=== PATIENT | female | born 1945 | race Caucasian/White ===

== ENCOUNTER 2020-11-16 22:18 | Emergency (ER) | payer OTHER, MEDICARE, SELFPAY ==
[2020-11-16 22:24] VITALS: PULSE 67; O2SAT 95
[2020-11-16 22:25] VITALS: BP 205/79; PULSE 60; PULSE 62; RESP 15; TEMP 36.8; O2SAT 97; O2SAT 98; BMI 30.9
[2020-11-16 22:30] VITALS: PULSE 60; RESP 21; O2SAT 98
[2020-11-16] MEDS: ONDANSETRON 4 MG/2 ML INJ IV (22:43)
[2020-11-16 23:00] VITALS: PULSE 59; RESP 27; O2SAT 96
--- NOTE | 2020-11-16 23:10 | ED_ITS ---
HPI - Abdominal Pain General Chief Complaint: Abdominal Pain Stated Complaint: upper abdominal pain Time Seen by Provider: 11/16/20 22:52 Source: patient Mode of arrival: Ambulatory Limitations: no limitations History of Present Illness HPI narrative: The patient presents with epigastric abdominal pain. She has COLTEN D. She takes Prilosec 20 mg daily. She has been having discomfort in the epigastric region for about 1 month. Symptoms are also better with eating. She has no discomfort radiating to her back. She drinks small amounts of alcohol, she is a he is nonsmoker. She has intermittent constipation than diarrhea. She has IBS. This evening the epigastric pain was increasing. She vomited 1 time since arrival in the ER, she is feeling better. She has no URI symptoms, no headache, no cough or fever. She has no urinary complaints. Related Data Previous Rx's Medication Instructions Recorded pantoprazole [Protonix] 40 mg PO DAILY #30 ea 11/17/20 Allergies Allergy/AdvReac Type Severity Reaction Status Date / Time Iodinated Contrast Media Allergy Verified 11/16/20 22:51 Sulfa (Sulfonamide Allergy Verified 11/16/20 22:51 Antibiotics) Review of Systems Constitutional Constitutional: Denies chills, Denies fever(s), Denies headache(s) and Denies weakness Eyes Eyes: Denies change in vision ENT Ears, Nose, Mouth, and Throat: Denies dizziness, Denies headache(s) and Denies sore throat Cardiovascular Cardiovascular: Denies chest pain, Denies rapid heart rate and Denies dyspnea Respiratory Respiratory: Denies cough, Denies dyspnea and Denies wheezing Gastrointestinal Gastrointestinal: Denies abdominal pain, Denies change in bowel habits and Denies nausea Musculoskeletal Musculoskeletal: Denies arthralgias, Denies back pain and Denies myalgias Integumentary/Breasts Skin/Breast: Denies pruritus, Denies erythema, Denies rash and Denies wounds Neurologic Neurologic: Denies confusion, Denies dizziness, Denies headache(s) and Denies weakness Psychiatric Psychiatric: Denies confusion and Denies depression Allergic/Immunologic Allergic/Immunologic: Denies wheezing Patient History Medical History (Updated 11/17/20 @ 01:42 by Yaya Oglesby MD) GERD (gastroesophageal reflux disease) Social History Smoking Status: Former smoker Smoking Status: Former smoker alcohol intake frequency: 0-2 drinks per day Substance Use Type: does not use Exam Initial Vital Signs Initial Vital Signs: Vital Signs Pulse Rate 67 11/16/20 22:24 Pulse Oximetry 95 11/16/20 22:24 Const General: cooperative and well developed Nutritional Appearance: well nourished [facility] Mouth: oral mucosae normal Throat: posterior oropharynx normal Eyes Conjunctivae: conjunctivae normal Neck Neck: full ROM and supple Chest Chest: normal inspection of the chest Resp Effort & Inspection: normal respiratory effort, able to speak in complete sentences, no respiratory distress and no use of accessory muscles Auscultation: clear to auscultation bilaterally, no rales, no rhonchi and no wheezes Cardio Rhythm: regular rhythm and abnormal rhythm Heart Sounds: S1 normal and S2 normal GI Other: Epigastric tenderness. No distension. No guarding or rebound. Back/Spine/Pelvis Back: No CVA tenderness Skin General: no rashes or lesions noted, No jaundice and No petechiae Neuro General: patient alert, patient oriented x3, gait normal and no focal motor deficits Speech: speech normal Extrem General: full ROM, no clubbing, cyanosis or edema, no pedal edema and no calf tenderness Course Course Course Narrative: Her LFTs and lipase are normal. She initially improved with Protonix, then the pain seemed to return a bit. Toradol was given, pain has been managed well now. She was discharged on Protonix instead of Prilosec. Orders Ordered: Discontinued Medications Ketorolac Tromethamine (Ketorolac 30 Mg/Ml Vial) 15 mg IV NOW ONE Stop: 11/17/20 01:00 Last Admin: 11/17/20 01:08 Dose: 15 mg Documented by: PORSCHE Ondansetron HCl (Ondansetron 4 Mg/2 Ml Inj) 4 mg IV NOW ONE Stop: 11/16/20 22:41 Last Admin: 11/16/20 22:43 Dose: 4 mg Documented by: SALONI Ondansetron HCl (Ondansetron 4 Mg/2 Ml Inj) 4 mg IV NOW ONE Stop: 11/16/20 23:10 Last Admin: 11/16/20 23:50 Dose: Not Given Documented by: LAYNE Pantoprazole Sodium (Pantoprazole 40 Mg Vial) 40 mg IV NOW ONE Stop: 11/16/20 23:10 Last Admin: 11/16/20 23:18 Dose: 40 mg Documented by: LAYNE Vital Signs Vital signs: Vital Signs - 8 hr 11/16/20 22:25 Temperature 98.3 F Pulse Rate 60 Respiratory Rate 15 Blood Pressure 205/79 H Pulse Oximetry 98 MDM - Abdominal Pain Lab Data Result diagrams: 11/16/20 22:35 11/16/20 22:35 Labs: Lab Results 11/16/20 11/16/20 11/16/20 Range/Units 22:35 22:35 22:35 WBC 6.8 (4.5-11.0) X10^3/uL RBC 4.27 (4.0-5.2) X10^6/uL Hgb 13.4 (12.0-16.0) g/dL Hct 40.1 (36-46) % MCV 93.9 (80-100) fL MCH 31.3 (26-34) PG MCHC 33.3 (30-36) % RDW 13.1 (11.6-14.8) % Plt Count 233 (150-400) X10^3/uL Neut % (Auto) 62.2 (50-75) % Lymph % (Auto) 25.1 (25-40) % [place] % (Auto) 10.1 (3-14) % Eos % (Auto) 2.0 (2-4) % Baso % (Auto) 0.6 (0-2) % Neut # (Auto) 4200 (9254-8174) /uL Lymph # (Auto) 1700 (4998-7223) /uL [place] # (Auto) 700 (0-900) /uL Eos # (Auto) 100 (0-450) /uL Baso # (Auto) 0 (0-100) /uL PT 10.6 (10.1-12.7) SECONDS INR 0.9 (0.9-1.3) APTT 32 (26.4-36.2) SECONDS Sodium 137 (137-145) mmol/L Potassium 3.5 (3.4-5.1) mmol/L Chloride 100 (98-107) mmol/L Carbon Dioxide 29 (22-32) mmol/L BUN 19 H (7-17) mg/dL Creatinine 0.51 L (0.52-1.04) mg/dL Estimated GFR > 60.0 (>60) mL/min BUN/Creatinine Ratio 37.3 H (6-22) Glucose 119 H (80-110) mg/dL Calcium 9.4 (8.4-10.2) mg/dL Total Bilirubin 0.3 (0.2-1.3) mg/dL AST 28 (14-36) IU/L ALT 20 (<35) IU/L Alkaline Phosphatase 114 (38-126) U/L Total Creatine Kinase (30-135) U/L CK-MB (CK-2) CK-MB (CK-2) Rel Index Troponin I (0.01-0.034) ng/mL Total Protein 6.9 (6.3-8.2) g/dL Albumin 4.0 (3.5-5.0) g/dL Globulin 2.9 (1.7-4.1) g/dL Albumin/Globulin Ratio 1.4 (1.0-2.8) Lipase 54 (23-300) U/L 11/16/20 Range/Units 22:35 WBC (4.5-11.0) X10^3/uL RBC (4.0-5.2) X10^6/uL Hgb (12.0-16.0) g/dL Hct (36-46) % MCV (80-100) fL MCH (26-34) PG MCHC (30-36) % RDW (11.6-14.8) % Plt Count (150-400) X10^3/uL Neut % (Auto) (50-75) % Lymph % (Auto) (25-40) % [place] % (Auto) (3-14) % Eos % (Auto) (2-4) % Baso % (Auto) (0-2) % Neut # (Auto) (6291-8899) /uL Lymph # (Auto) (5154-4468) /uL [place] # (Auto) (0-900) /uL Eos # (Auto) (0-450) /uL Baso # (Auto) (0-100) /uL PT (10.1-12.7) SECONDS INR (0.9-1.3) APTT (26.4-36.2) SECONDS Sodium (137-145) mmol/L Potassium (3.4-5.1) mmol/L Chloride (98-107) mmol/L Carbon Dioxide (22-32) mmol/L BUN (7-17) mg/dL Creatinine (0.52-1.04) mg/dL Estimated GFR (>60) mL/min BUN/Creatinine Ratio (6-22) Glucose (80-110) mg/dL Calcium (8.4-10.2) mg/dL Total Bilirubin (0.2-1.3) mg/dL AST (14-36) IU/L ALT (<35) IU/L Alkaline Phosphatase (38-126) U/L Total Creatine Kinase 55 (30-135) U/L CK-MB (CK-2) TNP CK-MB (CK-2) Rel Index TNP Troponin I < 0.012 (0.01-0.034) ng/mL Total Protein (6.3-8.2) g/dL Albumin (3.5-5.0) g/dL Globulin (1.7-4.1) g/dL Albumin/Globulin Ratio (1.0-2.8) Lipase (23-300) U/L Point of care testing: Urine Dip Bedside Urine Glucose Negative Bedside Urine Bilirubin - Negative Bedside Urine Ketone - Negative Urine Specific [place] 1.025 Bedside Urine Occult Blood - Negative Bedside Urine pH 6.0 Bedside Urine Protein - Negative Bedside Urine Urobilinogen - Negative Bedside Urine Nitrite - Negative Bedside Urine Leukocytes - Negative Esterase ECG Data Attestation: I personally reviewed and interpreted this ECG as follows: (Normal sinus rhythm rate 60 beats per minute. Normal intervals. No ectopy. No acute ST T wave changes.) Discharge Plan Departure Patient Disposition: Home Clinical Impression: Abdominal pain, acute, epigastric GERD (gastroesophageal reflux disease) Qualifiers: Esophagitis presence: esophagitis presence not specified Qualified Code(s): K21.9 - Gastro-esophageal reflux disease without esophagitis Instructions: DI for Gastroesophageal Reflux Disease (GERD) Activity Restrictions/Additional Instructions: I am going to change of members alter Protonix. Take 1 Protonix daily. You should be on a bland diet, limit herself to small meals. Follow-up with your doctor within the coming week for recheck. Return here if obviously worse. Prescriptions: New pantoprazole [Protonix] [address] for susp in packet 40 mg PO DAILY Qty: 30 RF: 0
[2020-11-16 23:11] LABS: Add Manual Diff / Slide Review NO; Basophils Absolute Auto 0 /uL (0-100); Basophils Percent Auto 0.6 % (0-2); Eosinophils Absolute Auto 100 /uL (0-450); Hematocrit 40.1 % (36-46); Hemoglobin 13.4 g/dL (12.0-16.0); Lymphocytes Absolute Auto 1700 /uL (1100-4500); Lymphocytes Percent Auto 25.1 % (25-40); Mean Corpuscular HGB Conc 33.3 % (30-36); Mean Corpuscular Hemoglobin 31.3 PG (26-34); Mean Corpuscular Volume 93.9 fL (80-100); Monocytes Absolute Auto 700 /uL (0-900); Monocytes Percent Auto 10.1 % (3-14); Neutrophils Absolute Auto 4200 /uL (1500-7000); Neutrophils Percent Auto 62.2 % (50-75); Platelet Count 233 X10^3/uL (150-400); Red Blood Cell Count 4.27 X10^6/uL (4.0-5.2); Red Cell Distribution Width 13.1 % (11.6-14.8); White Blood Cell Count 6.8 X10^3/uL (4.5-11.0)
[2020-11-16] MEDS: PANTOPRAZOLE 40 MG VIAL IV (23:18)
[2020-11-16 23:19] LABS: INR 0.9 (0.9-1.3); Prothrombin Time 10.6 SECONDS (10.1-12.7)
[2020-11-16 23:21] LABS: Creatine Kinase 55 U/L (30-135)
[2020-11-16 23:22] LABS: PTT Partial Thromboplastin Tim 32 SECONDS (26.4-36.2)
[2020-11-16 23:23] LABS: Alanine Aminotransferase 20 IU/L (<35); Albumin Globulin Ratio 1.4 (1.0-2.8); Alkaline Phosphatase 114 U/L (38-126); Aspartate Aminotransferase 28 IU/L (14-36); BUN Creatinine Ratio 37.3 (6-22); Bilirubin Total 0.3 mg/dL (0.2-1.3); Blood Urea Nitrogen 19 mg/dL (7-17); Calcium 9.4 mg/dL (8.4-10.2); Carbon Dioxide 29 mmol/L (22-32); Chloride 100 mmol/L (98-107); Estimated Glomerular Filt Rate > 60.0 mL/min (>60); Globulin 2.9 g/dL (1.7-4.1); Glucose 119 mg/dL (80-110); HEMOLYSIS < 15 (0-50); Lipase 54 U/L (23-300); Potassium 3.5 mmol/L (3.4-5.1); Sodium 137 mmol/L (137-145); Total Protein 6.9 g/dL (6.3-8.2)
[2020-11-16 23:30] VITALS: PULSE 61; RESP 17; O2SAT 94
[2020-11-16 23:34] LABS: Troponin I < 0.012 ng/mL (0.01-0.034)
[2020-11-17] VITALS: PULSE 63; RESP 16; O2SAT 92
[2020-11-17 00:30] VITALS: PULSE 65; RESP 24; O2SAT 90
[2020-11-17 01:00] VITALS: PULSE 62; RESP 35; O2SAT 94
[2020-11-17] MEDS: KETOROLAC 30 MG/ML VIAL 15 MG IV (01:08)
[2020-11-17 01:15] VITALS: BP 187/72; PULSE 63; RESP 16; O2SAT 95
[2020-11-17 01:31] VITALS: BP 134/64
== END 2020-11-17 01:53 | disposition home or self-care (01) ==
PROVIDERS: Emergency Provider Emergency Medicine
DX: R10.13 Epigastric pain (principal); K21.9 Gastro-esophageal reflux disease without esophagitis
CPT/HCPCS: 36415; 80053; 81003; 82550; 83690; 84484; 85025; 85610; 85730; 93005; 93010; 96374; 96375; 99284; C9113; J1885; J2405

== ENCOUNTER 2021-08-30 12:11 | Emergency (ER) | payer OTHER, MEDICARE, SELFPAY ==
[2021-08-30] VITALS (20 sets, daily range): BP systolic 168–213; BP diastolic 70–85; PULSE 73–87; RESP 13–28; TEMP 36.7–36.9; O2SAT 77–97; BMI 30.9
--- NOTE | 2021-08-30 12:40 | DI.RAD.S_ITS ---
PROCEDURE: XR CHEST 1V INDICATIONS: chest pain TECHNIQUE: One view of the chest was acquired. COMPARISON: None. FINDINGS: Surgical changes and devices: None. Lungs and pleura: Lungs are clear. No pleural effusions or pneumothorax. Mediastinum: The cardiac contours are within normal limits. The aorta demonstrates calcification and tortuosity. Bones and chest wall: No suspicious bony lesions. Age-appropriate bony degenerative changes are seen. Overlying soft tissues appear unremarkable. IMPRESSION: Unremarkable portable chest for age. Dictated by: Jeremias Henderson M.D. on 08/30/2021 at 12:08 Approved by: Jeremias Henderson M.D. on 08/30/2021 at 12:09
[2021-08-30 12:58] LABS: Add Manual Diff / Slide Review NO; Basophils Absolute Auto 0 /uL (0-100); Basophils Percent Auto 0.4 % (0-2); Eosinophils Absolute Auto 100 /uL (0-450); Eosinophils Percent Auto 0.7 % (2-4); Hematocrit 41.9 % (36-46); Hemoglobin 14.3 g/dL (12.0-16.0); Lymphocytes Absolute Auto 800 /uL (1100-4500); Lymphocytes Percent Auto 7.3 % (25-40); Mean Corpuscular HGB Conc 34.2 % (30-36); Mean Corpuscular Hemoglobin 31.5 PG (26-34); Mean Corpuscular Volume 92.2 fL (80-100); Monocytes Absolute Auto 1100 /uL (0-900); Monocytes Percent Auto 9.7 % (3-14); Neutrophils Absolute Auto 9300 /uL (1500-7000); Neutrophils Percent Auto 81.9 % (50-75); Platelet Count 262 X10^3/uL (150-400); Red Blood Cell Count 4.54 X10^6/uL (4.0-5.2); Red Cell Distribution Width 13.4 % (11.6-14.8); White Blood Cell Count 11.3 X10^3/uL (4.5-11.0)
[2021-08-30 13:01] LABS: INR 1.1 (0.9-1.3); Prothrombin Time 12.4 SECONDS (10.1-12.7)
[2021-08-30 13:03] LABS: PTT Partial Thromboplastin Tim 30 SECONDS (26.4-36.2)
[2021-08-30 13:07] LABS: Alanine Aminotransferase 25 IU/L (<35); Albumin 4.5 g/dL (3.5-5.0); Albumin Globulin Ratio 1.3 (1.0-2.8); Alkaline Phosphatase 107 U/L (38-126); Aspartate Aminotransferase 33 IU/L (14-36); BUN Creatinine Ratio 33.3 (6-22); Blood Urea Nitrogen 19 mg/dL (7-17); Carbon Dioxide 28 mmol/L (22-32); Chloride 100 mmol/L (98-107); Creatine Kinase 146 U/L (30-135); Estimated Glomerular Filt Rate > 60.0 mL/min (>60); Globulin 3.4 g/dL (1.7-4.1); Glucose 129 mg/dL (80-110); HEMOLYSIS < 15 (0-50); Lipase 38 U/L (23-300); Magnesium 1.9 mg/dL (1.6-2.3); Potassium 3.8 mmol/L (3.4-5.1); Sodium 136 mmol/L (137-145); Total Protein 7.9 g/dL (6.3-8.2)
[2021-08-30 13:15] LABS: COVID19 -Nasal RAPID Negative (Negative)
[2021-08-30 13:17] LABS: Troponin I < 0.012 ng/mL (0.01-0.034)
--- NOTE | 2021-08-30 14:22 | ED_ITS ---
HPI - Abdominal Pain General Chief Complaint: Abdominal Pain Stated Complaint: Acid Reflux, Pain/Vomitting Time Seen by Provider: 08/30/21 12:56 Source: patient Mode of arrival: Ambulatory Limitations: no limitations History of Present Illness HPI narrative: This is a pleasant 75-year-old female comes in with complaint of epigastric and right upper quadrant pain that started Wednesday the in the evening. Patient had had sweet potato fries for lunch states she has a history of GERD and woke up with epigastric pain, she had vomiting and dry heaving into the and . She had a tele visit with her physician they suspected reflux and started her on sucralfate, Pepcid and Protonix with instant relief. Patient states last night she ate a little bit more, she woke up at 4:00 a.m. took a Tylenol at 7:00 a.m. took the medications without any improvement. She did skip her a.m. metoprolol dose. Patient denies fever but has felt chilled. She has had right upper quadrant epigastric discomfort, bloating and radiation towards her back. She has increased pain at that site with deep inhalation but no anterior chest pain. She has had diarrhea, no black or bloody stools she states this is been daily. No dysuria urgency or frequency. She is on metoprolol extended release 25 mg daily, amlodipine 2.5 mg daily, Ambien, dicyclomine, ezetimibe, pantoprazole, famotidine and sucralfate. She states she has had a prior hip replacement x2, hysterectomy and very remote breast biopsy in the 70s. She den ies other abdominal or cardiac surgeries or history she is still her should to gold and has in at reaction to shrimp. She quit smoking tobacco 35 years ago. She has 1 glass of wine daily, no illicit. Dr. Panchal is her primary care. Related Data Home Medications Medication Instructions Recorded Confirmed amlodipine 2.5 mg tablet 2.5 mg PO QPM 08/30/21 08/30/21 dicyclomine 20 mg tablet 20 mg PO PRN PRN 08/30/21 08/30/21 ezetimibe 10 mg tablet 10 mg PO QPM 08/30/21 08/30/21 famotidine 20 mg tablet 20 mg PO BID 08/30/21 08/30/21 metoprolol succinate 25 mg 25 mg PO DAILY 08/30/21 08/30/21 tablet,extended release 24 hr sertraline 50 mg tablet 50 mg PO DAILY 08/30/21 08/30/21 sucralfate 100 mg/mL oral 1 g PO BID 08/30/21 08/30/21 suspension (Carafate) zolpidem 5 mg tablet 5 mg PO BEDTIME PRN 08/30/21 08/30/21 Previous Rx's Medication Instructions Recorded pantoprazole 40 mg granules 40 mg PO DAILY #30 ea 11/17/20 delayed-release for susp in packet (Protonix) hydrocodone 5 mg-acetaminophen 325 1 tab PO Q6H PRN #10 tab 08/30/21 mg tablet ondansetron 4 mg disintegrating 4 mg PO Q6H PRN #10 tab 08/30/21 tablet Allergies Allergy/AdvReac Type Severity Reaction Status Date / Time Iodinated Contrast Media Allergy Verified 11/16/20 22:51 Sulfa (Sulfonamide Allergy Verified 11/16/20 22:51 Antibiotics) Review of Systems Review of Systems ROS Unobtainable: All systems reviewed & are unremarkable except as noted in HPI and below Patient History Medical History GERD (gastroesophageal reflux disease) Social History Smoking Status: Former smoker Smoking Status: Former smoker alcohol intake frequency: 0-2 drinks per day Substance Use Type: does not use Exam Narrative Exam Narrative: GENERAL: Alert and oriented x three, obese female in mild distress. HEENT: Head normocephalic, atraumatic, EOMI, pupils reactive, face symmetric, moist mucous membranes NECK: Supple, full range of motion CARDIOVASCULAR: Regular rate and rhythm without murmurs, rubs or gallops. RESPIRATORY: Breath sounds equal bilaterally, no wheezes rales or rhonchi. ABDOMEN: Soft. Patient has generalized tenderness but has positive right upper quadrant and epigastric tenderness in the mild. Bowel sounds all 4 quadrants. No guarding or rebound, rigidity, no mass : No CVA tenderness EXTREMITIES: Normal range of motion, no clubbing or edema. Neurovascularly intact NEUROLOGICAL: Cranial nerves II through XII grossly intact. Moving all extremi ties SKIN: Warm, dry, no petechiae, no rashes or lesions. Initial Vital Signs Initial Vital Signs: Vital Signs Temperature 98.4 F 08/30/21 12:32 Pulse Rate 77 08/30/21 12:32 Respiratory Rate 16 08/30/21 12:32 Blood Pressure 213/83 H 08/30/21 12:32 Pulse Oximetry 97 08/30/21 12:32 Course Orders Ordered: Discontinued Medications Hydrocodone Bitart/Acetaminophen (Hydrocodone/Acet 5/325 Prepack) 1 bottle MISC SEEINSTR ONE Stop: 08/30/21 18:33 Last Admin: 08/30/21 18:45 Dose: 1 bottle Documented by: SALONI Albuterol (Albuterol 2.5 Mg/3 Ml Neb (Adult)) 2.5 mg INH NOW ONE Stop: 08/30/21 15:06 Last Admin: 08/30/21 15:10 Dose: 2.5 mg Documented by: ABUNDIO Diphenhydramine HCl (Diphenhydramine 50 Mg/Ml Vial) 50 mg IV NOW ONE Stop: 08/30/21 16:04 Last Admin: 08/30/21 16:07 Dose: 50 mg Documented by: AVIVA Sodium Chloride (Normal Saline 0.9%) 1,000 mls @ 1,000 mls/hr IV BOLUS ONE Stop: 08/30/21 15:21 Last Infusion: 08/30/21 16:12 Dose: 0 mls/hr Documented by: Admin: 08/30/21 14:35 Dose: 1,000 mls/hr Documented by: AVIVA Ketorolac Tromethamine (Ketorolac 30 Mg/Ml Vial) 15 mg IV NOW ONE Stop: 08/30/21 14:23 Last Admin: 08/30/21 14:29 Dose: 15 mg Documented by: AVIVA Methylprednisolone (Methylprednisolone 125 Mg/2 Ml Vial) 125 mg IV NOW ONE Stop: 08/30/21 16:04 Last Admin: 08/30/21 16:07 Dose: 125 mg Documented by: AVIVA Metoprolol Succinate (Metoprolol Er 25 Mg Tablet) 25 mg PO NOW ONE Stop: 08/30/21 15:03 Last Admin: 08/30/21 15:14 Dose: 25 mg Documented by: AVIVA Ondansetron HCl (Ondansetron 4 Mg/2 Ml Inj) 4 mg IV NOW ONE Stop: 08/30/21 14:24 Last Admin: 08/30/21 14:30 Dose: 4 mg Documented by: AVIVA Ondansetron HCl (Ondansetron 4 Mg Odt Prepack) 1 bottle [facility] [place] Stop: 08/30/21 18:33 Last Admin: 08/30/21 18:44 Dose: 1 bottle Documented by: SALONI Reevaluation(s) Reevaluation #1: Patient's pain is improved. Found have gallstones as well as a epigastric abdominal wall hernia that is fat containing. Most likely cause for pain is likely the hernia in the gallstones. She has bilateral hydro which patient states she is aware of and had scans for multiple years in a row and was eventually cleared and has been there chronically. Patient is aware of findings on her imaging. She feels comfortable returning home oxygen did drop after she received IV Benadryl so continuing to monitor if we can wean off O2 plan to DC home. Suspect patient has little bit of sleep apnea. Patient is comfortable with this plan and we discussed recommendations from general surgery. Time: 17:25 Consultations Consultation #1: Dr. Varela, general surgery. Patient is gallstones but no clear thickening but does have enlargement of her gallbladder. She also has a fat containing epigastric region anterior abdominal wall hernia. These both could be causing her pain today. Her labs are reassuring. Her pain was controlled with medication here. Dr. Varela happy to follow with her in the office for repair and follow-up for her gallstones. Vital Signs Vital signs: Vital Signs - 8 hr 08/30/21 12:32 08/30/21 13:51 08/30/21 14:00 Temperature 98.4 F Pulse Rate 77 78 74 Respiratory Rate 16 16 Blood Pressure 213/83 H 204/83 H 194/80 H Pulse Oximetry 97 95 94 08/30/21 14:20 08/30/21 14:30 08/30/21 15:00 Temperature Pulse Rate 75 73 79 Respiratory Rate 24 13 28 H Blood Pressure 198/85 H 195/80 H Pulse Oximetry 93 96 94 08/30/21 15:01 08/30/21 15:14 08/30/21 15:15 Temperature Pulse Rate 79 74 78 Respiratory Rate 26 H 20 Blood Pressure 208/81 H 208/81 H Pulse Oximetry 94 93 08/30/21 15:30 08/30/21 15:31 08/30/21 16:00 Temperature Pulse Rate 80 83 83 Respiratory Rate 24 22 16 Blood Pressure 181/74 H Pulse Oximetry 94 94 95 08/30/21 16:12 08/30/21 16:16 08/30/21 16:37 Temperature Pulse Rate 85 86 Respiratory Rate 18 Blood Pressure 199/83 H 199/83 H Pulse Oximetry 96 77 L 08/30/21 16:39 08/30/21 17:00 08/30/21 17:30 Temperature Pulse Rate 87 79 78 Respiratory Rate 21 16 24 Blood Pressure 169/70 H 168/71 H Pulse Oximetry 96 92 96 08/30/21 18:00 Temperature Pulse Rate 75 Respiratory Rate 24 Blood Pressure 170/73 H Pulse Oximetry 96 MDM - Abdominal Pain Lab Data Result diagrams: 08/30/21 12:45 08/30/21 12:45 Labs: Lab Results 08/30/21 08/30/21 08/30/21 Range/Units 12:45 12:45 12:45 WBC 11.3 H (4.5-11.0) X10^3/uL RBC 4.54 (4.0-5.2) X10^6/uL Hgb 14.3 (12.0-16.0) g/dL Hct 41.9 (36-46) % MCV 92.2 (80-100) fL MCH 31.5 (26-34) PG MCHC 34.2 (30-36) % RDW 13.4 (11.6-14.8) % Plt Count 262 (150-400) X10^3/uL Neut % (Auto) 81.9 H (50-75) % Lymph % (Auto) 7.3 L (25-40) % [place] % (Auto) 9.7 (3-14) % Eos % (Auto) 0.7 L (2-4) % Baso % (Auto) 0.4 (0-2) % Neut # (Auto) 9300 H (7162-6814) /uL Lymph # (Auto) 800 L (5805-3861) /uL [place] # (Auto) 1100 H (0-900) /uL Eos # (Auto) 100 (0-450) /uL Baso # (Auto) 0 (0-100) /uL PT 12.4 (10.1-12.7) SECONDS INR 1.1 (0.9-1.3) APTT 30 (26.4-36.2) SECONDS Sodium 136 L (137-145) mmol/L Potassium 3.8 (3.4-5.1) mmol/L Chloride 100 (98-107) mmol/L Carbon Dioxide 28 (22-32) mmol/L BUN 19 H (7-17) mg/dL Creatinine 0.57 (0.52-1.04) mg/dL Estimated GFR > 60.0 (>60) mL/min BUN/Creatinine Ratio 33.3 H (6-22) Glucose 129 H (80-110) mg/dL Calcium 9.0 (8.4-10.2) mg/dL Magnesium 1.9 (1.6-2.3) mg/dL Total Bilirubin 1.0 (0.2-1.3) mg/dL AST 33 (14-36) IU/L ALT 25 (<35) IU/L Alkaline Phosphatase 107 (38-126) U/L Total Creatine Kinase 146 H (30-135) U/L CK-MB (CK-2) 1.40 (<2.37) ng/mL CK-MB (CK-2) Rel Index 1.0 L (1.5-5.0) % Troponin I < 0.012 (0.01-0.034) ng/mL Total Protein 7.9 (6.3-8.2) g/dL Albumin 4.5 (3.5-5.0) g/dL Globulin 3.4 (1.7-4.1) g/dL Albumin/Globulin Ratio 1.3 (1.0-2.8) Lipase 38 (23-300) U/L SARS-CoV-2 (PCR) (Negative) 08/30/21 08/30/21 Range/Units 12:52 14:41 WBC (4.5-11.0) X10^3/uL RBC (4.0-5.2) X10^6/uL Hgb (12.0-16.0) g/dL Hct (36-46) % MCV (80-100) fL MCH (26-34) PG MCHC (30-36) % RDW (11.6-14.8) % Plt Count (150-400) X10^3/uL Neut % (Auto) (50-75) % Lymph % (Auto) (25-40) % [place] % (Auto) (3-14) % Eos % (Auto) (2-4) % Baso % (Auto) (0-2) % Neut # (Auto) (6478-0118) /uL Lymph # (Auto) (8191-4358) /uL [place] # (Auto) (0-900) /uL Eos # (Auto) (0-450) /uL Baso # (Auto) (0-100) /uL PT (10.1-12.7) SECONDS INR (0.9-1.3) APTT (26.4-36.2) SECONDS Sodium (137-145) mmol/L Potassium (3.4-5.1) mmol/L Chloride (98-107) mmol/L Carbon Dioxide (22-32) mmol/L BUN (7-17) mg/dL Creatinine (0.52-1.04) mg/dL Estimated GFR (>60) mL/min BUN/Creatinine Ratio (6-22) Glucose (80-110) mg/dL Calcium (8.4-10.2) mg/dL Magnesium (1.6-2.3) mg/dL Total Bilirubin (0.2-1.3) mg/dL AST (14-36) IU/L ALT (<35) IU/L Alkaline Phosphatase (38-126) U/L Total Creatine Kinase (30-135) U/L CK-MB (CK-2) (<2.37) ng/mL CK-MB (CK-2) Rel Index (1.5-5.0) % Troponin I < 0.012 (0.01-0.034) ng/mL Total Protein (6.3-8.2) g/dL Albumin (3.5-5.0) g/dL Globulin (1.7-4.1) g/dL Albumin/Globulin Ratio (1.0-2.8) Lipase (23-300) U/L SARS-CoV-2 (PCR) Negative (Negative) Point of care testing: Urine Dip Bedside Urine Glucose Negative Bedside Urine Bilirubin - Negative Bedside Urine Ketone ++ 40 Urine Specific [place] 1.020 Bedside Urine Occult Blood - Negative Bedside Urine pH 6.0 Bedside Urine Protein - Negative Bedside Urine Urobilinogen - Negative Bedside Urine Nitrite - Negative Bedside Urine Leukocytes - Negative Esterase Imaging Data Chest x-ray: Radiologist's Impression: [address] [address] XRay Report Signed Patient: Bisi Fang MR#: [id number] : 1945 Acct:[id number] Age/Sex: 75 / F Date of Service: 08/30/21 Loc: ED Accession Number: [id number] ?? Procedure: XR chest 1V Ordering Provider: Nayeli Riddle D.O. PROCEDURE:? XR CHEST 1V ? INDICATIONS:? chest pain ? TECHNIQUE:? One view of the chest was acquired.? ? COMPARISON:? None. ? FINDINGS:? ? Surgical changes and devices:? None.? ? Lungs and pleura:? Lungs are clear.? No pleural effusions or pneumothorax.? ? Mediastinum:? The cardiac contours are within normal limits. The aorta demonstrates calcification and tortuosity. ? Bones and chest wall:? No suspicious bony lesions.? Age-appropriate bony degenerative changes are seen.? Overlying soft tissues appear unremarkable.? ? ? IMPRESSION:? Unremarkable portable chest for age. ? ? Dictated by: Jeremias Henderson M.D. on 08/30/2021 at 12:08 ? ? Approved by: Jeremias Henderson M.D. on 08/30/2021 at 12:09?? US - abdomen: Radiologist's Impression: [address] [address] Ultrasound Report Signed Patient: Bisi Fang MR#: [id number] : 1945 Acct:[id number] Age/Sex: 75 / F Date of Service: 08/30/21 Loc: ED Accession Number: [id number] ?? Procedure: US abdomen limited Ordering Provider: Nayeli Riddle D.O. PROCEDURE: US ABDOMEN LIMITED ? INDICATIONS:? RUQ/EPIGASTRIC TENDERNESS ? TECHNIQUE:? Real-time focused scanning was performed of the abdomen, with image documentation.? ? COMPARISON:? [facility], , XR CHEST 1V, 08/30/2021, 12:42. ? FINDINGS:? The liver is normal in size and demonstrates normal overall echogenicity.? Several liver cysts are seen within the left liver.? The right liver is poorly seen, secondary to limited acoustic windows. ? The gallbladder appears distended, with at least 1 stone within it.? ? The gallbladder wall is not thickened, measuring 3 mm or less.? No specific pericholecystic fluid is seen.? The sonographic Hurtado sign is not reliable, secondary to the patient's pain medication. ? There is no biliary dilatation, the common bile duct measures 6 mm.? ? No significant pancreatic abnormality is seen on these images.? This study is limited by body habitus. ? ? IMPRESSION:? Distended gallbladder with a gallstone within it.? No additional sonographic signs of cholecystitis are seen. ? No biliary dilatation is seen. ? Multiple left liver cysts can be seen. ? Note: Concordant preliminary findings given by the bottom hoop driver upon the completion of the examination to Dr. Riddle at 3:45 p.m. on August 30, 2021.? ? ? Dictated by: Jeremias Henderson M.D. on 08/30/2021 at 14:58 ? ? Approved by: Jeremias Henderson M.D. on 08/30/2021 at 15:00?? chest/abd/pelvis CT: Radiologist's Impression: [place] [address] CT Scan Report Signed Patient: Bisi Fang MR#: [id number] : 1945 Acct:[id number] Age/Sex: 75 / F Date of Service: 08/30/21 Loc: ED Accession Number: [id number] ?? Procedure: CT angio chest abdomen pelvis Ordering Provider: Nayeli Riddle D.O. PROCEDURE:? CT ANGIO CHEST ABDOMEN PELVIS ? INDICATIONS:? sob, epigastric pain, htn ? TECHNIQUE:? Precontrast 5 mm thick sections acquired from the lung apices to the iliac crests.? After the administration of intravenous contrast, 2.5 mm thick sections again acquired from the lung apices to the iliac crests.? Maximum intensity projection (MIP) oblique sagittal and coronal reformats were then acquired.? For radiation dose reduction, the following was used:? automated exposure control.? ? COMPARISON:? [facility], CR, XR CHEST 1V, 08/30/2021, 12:42.? [facility], US, US ABDOMEN LIMITED, 08/30/2021, 15:29. ? FINDINGS:? Image quality:? There is artifact associated with the metallic hardware. ? Artifact from the metallic hardware is reduced by metal reconstruction algorithm.? ? AORTA:? On precontrast imaging, no mural hematomas can be seen.? On postcontrast imaging, there is no aortic aneurysm or dissection seen.? Atherosclerotic calcification and irregularity can be seen throughout the aorta.? Ectasia can be seen of the abdominal aorta just below the level of the renal arteries measuring 2.5 cm transversely. ? ? CHEST:? Lungs and pleura:? No acute airspace opacities.? No pleural effusions or pneumothorax.? Central and peripheral airways are patent and normal in caliber.? ? Mediastinum:? Heart size is normal.? No pericardial effusion.? No mediastinal or hilar adenopathy by size criteria.? Central pulmonary arteries are normal in size.? To the limits of this study that is optimized for evaluation of the aorta, no large or central pulmonary emboli can be seen.? Esophagus is normal in caliber.? There is a small hiatal hernia. ? Bones and chest wall:? No axillary adenopathy by size criteria.? Thyroid gland demonstrates no significant abnormality.? No suspicious bony lesions.? No vertebral body compression fractures.? ? ? ABDOMEN:? Vasculature:? Celiac trunk and mesenteric arteries are patent.? Renal arteries are also patent.? ? Solid organs:? Liver is normal in size and enhancement.? Liver cysts are seen.? Gallbladder demonstrates gallstones within its lumen.? Biliary system is non dilated.? Pancreas enhances normally.? Spleen is normal in size and enhancement.? No adrenal nodules.? ? Bilateral hydronephrosis is seen, with prominent bilateral renal pelvis on both sides also seen.? There is an abrupt caliber change seen involving both ureteropelvic junctions. ? Peritoneum and bowel:? No free fluid or air.? Bowel loops are normal in caliber and wall thickness.? Colonic diverticulosis is seen, without findings of active diverticulitis. ? Nodes and vessels:? No retroperitoneal or mesenteric adenopathy by size crit eria.? Inferior vena cava is normal in morphology.? ? Miscellaneous:? A mild fat containing anterior abdominal wall hernia can be seen within the right epigastric region. ? ? PELVIS:? Genitourinary:? Bladder wall thickness is normal.? This patient is status post hysterectomy. No adnexal masses are seen.? ? Miscellaneous:? No inguinal hernias or adenopathy.? No ventral hernias.? ? Bones:? No suspicious bony lesions.? No vertebral body compression fractures.? Mild dextroconvex scoliotic curvature is seen.? Bilateral hip arthroplasty hardware is seen.? Lumbar spine degenerative changes are seen.? Milder degenerative changes are seen elsewhere.? IMPRESSION:? Negative for aortic aneurysm or dissection. ? Abdominal aortic ectasia, measuring 2.5 cm just below the level of the renal arteries. ? Bilateral hydronephrosis is seen.? Apparent bilateral UPJ obstruction. ? ? ? Incidental note is made of: Small hiatal hernia Liver cysts Gallstones within the gallbladder Fat containing right epigastric region anterior abdominal wall hernia Diverticulosis, without active diverticulitis Hysterectomy Lumbar spine degenerative change Dextroconvex scoliotic curvature Bilateral hip arthroplasty hardware ? ? Dictated by: Jeremias Henderson M.D. on 08/30/2021 at 15:53 ? ? Approved by: Jeremias Henderson M.D. on 08/30/2021 at 16:00? ECG Data Attestation: I personally reviewed and interpreted this ECG as follows: Prior ECG tracings: available for review Interpretation: Sinus rhythm rate of 70 WA 178 QRS [address]TC [address] No acute [address] elevation depression noted. Patient has prior from 11/16/2020. Patient has some T-wave flattening in 3 and AVF as well as me 3. No elevation or other ST changes appreciated. EKG 2. Shows sinus rhythm nonspecific change. I do not appreciate dynamic ST changes. Rate of 80, WA 196 QRS 86 and QTC of 465. MDM Narrative Medical decision making narrative: This is a 75-year-old female who comes emergency department with complaint of epigastric and right-sided abdominal pain that has been present for several days and worsened. It has been intermittent. Patient is found to have gallstones, enlarged gallbladder but no wall thickening, no sonographic versus sign on exam. She has a slight leukocytosis but no elevation in LFTs. She is also found to have a fat containing epigastric anterior abdominal wall hernia but with no bowel. Unable to easily palpate this but this is also likely cause of her pain as well. Her labs are otherwise reassuring she has bilateral hydronephrosis which she is aware of and has been followed regularly for in the past and also noted to have some enlargement of her abdominal aorta below the level of renal arteries. Patient's tenderness is all epigastric and right upper quadrant. Patient was borderline with her oxygenation angio does not show PEs, dissection, infections in the lungs or other causes that would likely cause low O2 and this was worsened after IV Benadryl which is given preemptively for rash from iodine in the past. I suspect patient has a little bit of sleep apnea which is causing these issues. She is negative for COVID. Negative troponin and EKG. All questions answered. Patient was monitored she is off oxygen and 96% persistently. Patient started to have some increase of her pain she has only had Toradol today so was given a prepack for [place] this evening as all the pharmacies are closed. Discharge Plan Departure Patient Disposition: Home Clinical Impression: Gallstones, Abdominal pain, Bilateral hydronephrosis, Abdominal aortic ectasia, Hernia of anterior abdominal wall Instructions: DI for Gallstones, Abdominal Hernia Activity Restrictions/Additional Instructions: Your imaging today shows gallstones, a fat containing anterior abdominal wall hernia in the right epigastric region which is where you are tender. It is noted that there was some hydro or enlargement of the kidney but no obvious stones or lesions. Your renal function is normal today. You are noted to have a dilated aorta at 2.5 cm just below the renal arteries. Continue home medications as prescribed. You may take Zofran 1 tablet every 6 hours as needed for nausea. You may take [place] 1-2 tablet every 6 hours as needed for pain. This medication can make you sleepy do not drive, perform hazardous activities or m tavo any major decisions while taking it. This medication will make you constipated please take a stool softener once to twice daily until stools are soft and regular. Prescription sent to Please return for persistent vomiting, worsening pain, lightheadedness or passing out, difficulty with bowel movements, if you are not having any stool output, few not passing gas, improving new chest pain or shortness of breath, fevers or other new or concerning symptoms. Prescriptions: New ondansetron 4 mg tablet,disintegrating 4 mg PO Q6H PRN (Reason: nausea and vomiting) Qty: 10 0RF hydrocodone-acetaminophen 5-325 mg tablet 1 tab PO Q6H PRN (Reason: pain) Qty: 10 0RF No Action pantoprazole [Protonix] [address] for susp in packet 40 mg PO DAILY Qty: 30 0RF sucralfate [Carafate] 100 mg/mL Suspension 1 g PO BID 0RF amlodipine 2.5 mg Tablet 2.5 mg PO QPM 0RF famotidine 20 mg Tablet 20 mg PO BID 0RF dicyclomine 20 mg Tablet 20 mg PO PRN PRN (Reason: Diarrhea) 0RF zolpidem 5 mg Tablet 5 mg PO BEDTIME PRN (Reason: Sleep) 0RF metoprolol succinate 25 mg Tablet Extended Release 24 Hr 25 mg PO DAILY 0RF sertraline 50 mg Tablet 50 mg PO DAILY 0RF ezetimibe 10 mg Tablet 10 mg PO QPM 0RF
[2021-08-30] MEDS: KETOROLAC 30 MG/ML VIAL 15 MG IV (14:29)
[2021-08-30] MEDS: ONDANSETRON 4 MG/2 ML INJ IV (14:30)
[2021-08-30] MEDS: SODIUM CHLORIDE 0.9% 1,000 ML 1000 ML IV (14:35)
--- NOTE | 2021-08-30 14:48 | PC.NURSE ---
patient was not taking full breaths due to pain in the abdomen. her o2 saturation is 93% on RA. RT called for consult. No history of lung disease
--- NOTE | 2021-08-30 15:02 | DI.US.S_ITS ---
PROCEDURE: US ABDOMEN LIMITED INDICATIONS: RUQ/EPIGASTRIC TENDERNESS TECHNIQUE: Real-time focused scanning was performed of the abdomen, with image documentation. COMPARISON: [facility], CR, XR CHEST 1V, 08/30/2021, 12:42. FINDINGS: The liver is normal in size and demonstrates normal overall echogenicity. Several liver cysts are seen within the left liver. The right liver is poorly seen, secondary to limited acoustic windows. The gallbladder appears distended, with at least 1 stone within it. The gallbladder wall is not thickened, measuring 3 mm or less. No specific pericholecystic fluid is seen. The sonographic Hurtado sign is not reliable, secondary to the patient's pain medication. There is no biliary dilatation, the common bile duct measures 6 mm. No significant pancreatic abnormality is seen on these images. This study is limited by body habitus. IMPRESSION: Distended gallbladder with a gallstone within it. No additional sonographic signs of cholecystitis are seen. No biliary dilatation is seen. Multiple left liver cysts can be seen. Note: Concordant preliminary findings given by the pageant director upon the completion of the examination to Dr. Riddle at 3:45 p.m. on August 30, 2021. Dictated by: Jeremias Henderson M.D. on 08/30/2021 at 14:58 Approved by: Jeremias Henderson M.D. on 08/30/2021 at 15:00
[2021-08-30] MEDS: ALBUTEROL 2.5 MG/3 ML NEB (ADULT) INH (15:10)
[2021-08-30 15:14] LABS: Troponin I < 0.012 ng/mL (0.01-0.034)
[2021-08-30] MEDS: METOPROLOL ER 25 MG TABLET PO (15:14)
--- NOTE | 2021-08-30 15:49 | DI.CT.S_ITS ---
PROCEDURE: CT ANGIO CHEST ABDOMEN PELVIS INDICATIONS: sob, epigastric pain, htn TECHNIQUE: Precontrast 5 mm thick sections acquired from the lung apices to the iliac crests. After the administration of intravenous contrast, 2.5 mm thick sections again acquired from the lung apices to the iliac crests. Maximum intensity projection (MIP) oblique sagittal and coronal reformats were then acquired. For radiation dose reduction, the following was used: automated exposure control. COMPARISON: [facility], CR, XR CHEST 1V, 08/30/2021, 12:42. [facility], US, US ABDOMEN LIMITED, 08/30/2021, 15:29. FINDINGS: Image quality: There is artifact associated with the metallic hardware. Artifact from the metallic hardware is reduced by metal reconstruction algorithm. AORTA: On precontrast imaging, no mural hematomas can be seen. On postcontrast imaging, there is no aortic aneurysm or dissection seen. Atherosclerotic calcification and irregularity can be seen throughout the aorta. Ectasia can be seen of the abdominal aorta just below the level of the renal arteries measuring 2.5 cm transversely. CHEST: Lungs and pleura: No acute airspace opacities. No pleural effusions or pneumothorax. Central and peripheral airways are patent and normal in caliber. Mediastinum: Heart size is normal. No pericardial effusion. No mediastinal or hilar adenopathy by size criteria. Central pulmonary arteries are normal in size. To the limits of this study that is optimized for evaluation of the aorta, no large or central pulmonary emboli can be seen. Esophagus is normal in caliber. There is a small hiatal hernia. Bones and chest wall: No axillary adenopathy by size criteria. Thyroid gland demonstrates no significant abnormality. No suspicious bony lesions. No vertebral body compression fractures. ABDOMEN: Vasculature: Celiac trunk and mesenteric arteries are patent. Renal arteries are also patent. Solid organs: Liver is normal in size and enhancement. Liver cysts are seen. Gallbladder demonstrates gallstones within its lumen. Biliary system is non dilated. Pancreas enhances normally. Spleen is normal in size and enhancement. No adrenal nodules. Bilateral hydronephrosis is seen, with prominent bilateral renal pelvis on both sides also seen. There is an abrupt caliber change seen involving both ureteropelvic junctions. Peritoneum and bowel: No free fluid or air. Bowel loops are normal in caliber and wall thickness. Colonic diverticulosis is seen, without findings of active diverticulitis. Nodes and vessels: No retroperitoneal or mesenteric adenopathy by size criteria. Inferior vena cava is normal in morphology. Miscellaneous: A mild fat containing anterior abdominal wall hernia can be seen within the right epigastric region. PELVIS: Genitourinary: Bladder wall thickness is normal. This patient is status post hysterectomy. No adnexal masses are seen. Miscellaneous: No inguinal hernias or adenopathy. No ventral hernias. Bones: No suspicious bony lesions. No vertebral body compression fractures. Mild dextroconvex scoliotic curvature is seen. Bilateral hip arthroplasty hardware is seen. Lumbar spine degenerative changes are seen. Milder degenerative changes are seen elsewhere. IMPRESSION: Negative for aortic aneurysm or dissection. Abdominal aortic ectasia, measuring 2.5 cm just below the level of the renal arteries. Bilateral hydronephrosis is seen. Apparent bilateral UPJ obstruction. Incidental note is made of: Small hiatal hernia Liver cysts Gallstones within the gallbladder Fat containing right epigastric region anterior abdominal wall hernia Diverticulosis, without active diverticulitis Hysterectomy Lumbar spine degenerative change Dextroconvex scoliotic curvature Bilateral hip arthroplasty hardware Dictated by: Jeremias Henderson M.D. on 08/30/2021 at 15:53 Approved by: Jeremias Henderson M.D. on 08/30/2021 at 16:00
[2021-08-30] MEDS: methylPREDNISolone 125 MG/2 ML VIAL IV (16:07)
[2021-08-30] MEDS: diphenhydrAMINE 50 MG/ML VIAL IV (16:07)
--- NOTE | 2021-08-30 17:04 | PC.NURSE ---
The patient responded well to the nebulizer treatment but her o2 saturation fell back down to 88% on RA. He was placed on 1l via NC. Her lungs sound clear.
[2021-08-30] MEDS: ONDANSETRON 4 MG ODT PREPACK 1 BOTTLE MISC (18:44)
[2021-08-30] MEDS: HYDROCODONE/ACET 5/325 PREPACK 1 BOTTLE MISC (18:45)
== END 2021-08-30 19:00 | disposition home or self-care (01) ==
PROVIDERS: Emergency Provider Emergency Medicine
DX: K80.80 Other cholelithiasis without obstruction (principal); R10.13 Epigastric pain; N13.30 Unspecified hydronephrosis; I77.811 Abdominal aortic ectasia; K43.9 Ventral hernia without obstruction or gangrene; Z87.891 Personal history of nicotine dependence; Z20.822 Contact with and (suspected) exposure to COVID-19
CPT/HCPCS: 36415; 71045; 71275; 74174; 76705; 80053; 81003; 82550; 82553; 83690; 83735; 84484; 85025; 85610; 85730; 87635; 93005; 93010; 94640; 96361; 96374; 96375; 99284; 99285; C9803; J1200; J1885; J2405; J2930; J7613; Q9967

== ENCOUNTER → 2022-05-05 10:22 | Outpatient (CLI) | payer OTHER, MEDICARE, SELFPAY | PROVIDERS: PCP Student in an Organized Health Care Education/Training Program; Referring Provider Student in an Organized Health Care Education/Training Program; Visit Provider Student in an Organized Health Care Education/Training Program | DX: M89.9 Disorder of bone, unspecified (principal); M94.9 Disorder of cartilage, unspecified; M85.89 Other specified disorders of bone density and structure, multiple sites | CPT/HCPCS: 77080; 77081 ==

== ENCOUNTER 2022-05-20 17:21 | Emergency (ER) | payer OTHER, SELFPAY ==
[2022-05-20 17:30] VITALS: BP 175/77; PULSE 68; RESP 20; TEMP 37; O2SAT 96
[2022-05-20 17:50] LABS: Add Manual Diff / Slide Review NO; Basophils Absolute Auto 100 /uL (0-100); Basophils Percent Auto 1.2 % (0-2); Eosinophils Absolute Auto 100 /uL (0-450); Eosinophils Percent Auto 2.2 % (2-4); Hematocrit 40.7 % (36-46); Hemoglobin 13.9 g/dL (12.0-16.0); Lymphocytes Absolute Auto 1600 /uL (1100-4500); Lymphocytes Percent Auto 28.6 % (25-40); Mean Corpuscular HGB Conc 34.1 % (30-36); Mean Corpuscular Hemoglobin 32.1 PG (26-34); Mean Corpuscular Volume 94.1 fL (80-100); Monocytes Absolute Auto 500 /uL (0-900); Monocytes Percent Auto 10.1 % (3-14); Neutrophils Absolute Auto 3200 /uL (1500-7000); Neutrophils Percent Auto 57.9 % (50-75); Platelet Count 213 X10^3/uL (150-400); Red Blood Cell Count 4.32 X10^6/uL (4.0-5.2); Red Cell Distribution Width 13.4 % (11.6-14.8); White Blood Cell Count 5.5 X10^3/uL (4.5-11.0)
[2022-05-20 18:02] LABS: Alanine Aminotransferase 23 IU/L (<35); Albumin Globulin Ratio 1.2 (1.0-2.8); Alkaline Phosphatase 106 U/L (38-126); Aspartate Aminotransferase 25 IU/L (14-36); BUN Creatinine Ratio 36.7 (6-22); Bilirubin Total 0.5 mg/dL (0.2-1.3); Blood Urea Nitrogen 18 mg/dL (7-17); Calcium 9.1 mg/dL (8.4-10.2); Carbon Dioxide 25 mmol/L (22-32); Chloride 103 mmol/L (98-107); Estimated Glomerular Filt Rate > 60 mL/min (>60); Globulin 3.3 g/dL (1.7-4.1); Glucose 85 mg/dL (80-110); HEMOLYSIS < 15 (0-50); Lipase 47 U/L (23-300); Potassium 3.7 mmol/L (3.4-5.1); Sodium 138 mmol/L (137-145); Total Protein 7.3 g/dL (6.3-8.2)
[2022-05-20 19:31] VITALS: TEMP 38.4
== END 2022-05-20 19:33 | disposition left against medical advice (07) ==
PROVIDERS: Emergency Provider Emergency Medicine; PCP Student in an Organized Health Care Education/Training Program
DX: R11.0 Nausea (principal)
CPT/HCPCS: 80053; 83690; 85025; 99281

== ENCOUNTER 2023-03-02 21:43 | Emergency (ER) | payer OTHER, MEDICARE, SELFPAY ==
[2023-03-02 21:48] VITALS: PULSE 76; O2SAT 94
[2023-03-02 21:49] VITALS: BP 189/79; PULSE 76; O2SAT 93
[2023-03-02 21:52] VITALS: BP 187/79; PULSE 68; RESP 17; TEMP 36.8; O2SAT 93; BMI 32.2
[2023-03-02 22:00] VITALS: BP 168/72; PULSE 62; RESP 29; O2SAT 95
--- NOTE | 2023-03-02 22:22 | ED.GENADULT ---
HPI - General Adult General Chief complaint: Eye Problems Stated complaint: flashing, visual changes, headache sudden onset Time Seen by Provider: 03/02/23 21:52 Source: patient Mode of arrival: Ambulatory Limitations: no limitations History of Present Illness HPI narrative: Patient is a 77-year-old female. Has a history of cataracts but she states they have not been bad enough to have any sort of surgeries. She wears reading glasses and glasses at night to drive. No prior eye surgeries. She states that she has had ?wrinkles? in her redness in the past. She is being followed by a retina specialist for this. She is an appointment with this individual 1 week from tomorrow. She states she was at her normal state of health. Was watching TV when she states that she had a ?causey? fan like disturbance in her right visual field. States it lasted for few minutes. It is now completely gone. States she now has some pressure around her right eye. At the time of the event she was not having any other symptoms. No other neurologic symptoms. She is never had anything like this in the past. She states that she knew that it was just in her right eye. It did seem to follow her vision when she looked around. Related Data Home Medications Medication Instructions Recorded Confirmed dicyclomine 20 mg tablet 20 mg PO PRN PRN Diarrhea 08/30/21 01/08/23 ezetimibe 10 mg tablet 10 mg PO QPM 08/30/21 01/08/23 famotidine 20 mg tablet 20 mg PO BID 08/30/21 01/08/23 Previous Rx's Medication Instructions Recorded pantoprazole 40 mg granules 40 mg PO DAILY #30 ea 11/17/20 delayed-release for susp in packet (Protonix) amlodipine 5 mg tablet (Norvasc) 5 mg PO DAILY blood pressure #90 09/07/22 tabs zolpidem 5 mg tablet 5 mg PO BEDTIME PRN Sleep #30 tabs 11/23/22 metoprolol succinate 25 mg 25 mg PO DAILY #90 tabs 01/15/23 tablet,extended release 24 hr sertraline 50 mg tablet 50 mg PO DAILY #90 tabs 02/15/23 Allergies Allergy/AdvReac Type Severity Reaction Status Date / Time Iodinated Contrast Media Allergy Verified 01/08/23 14:26 shellfish derived Allergy Verified 01/08/23 14:26 Xbiopmh-[id number]-[id number] Reductase Allergy Verified 01/08/23 14:26 Inhibitor Sulfa (Sulfonamide Allergy Verified 01/08/23 14:26 Antibiotics) gold Allergy Uncoded 01/08/23 14:26 Review of Systems Constitutional Constitutional: Reports system reviewed and no additional complaints, except as documented Eyes Eyes: Reports system reviewed and no additional complaints, except as documented Integumentary/Breasts Skin/Breast: Reports system reviewed and no additional complaints, except as documented Neurologic Neurologic: Reports system reviewed and no additional complaints, except as documented Patient History Medical History Benign essential HTN Chicken pox (~1954) Colon polyps Depression (~2017) Eczema (~2018) GERD (gastroesophageal reflux disease) Herpes (~1973) History of IBS Hyperlipidemia Insomnia Measles (~1950) Mumps (~1952) KANA (obstructive sleep apnea) (~2008) Polymyalgia rheumatica (~2016) Restless leg syndrome (~2009) Skin cancer (~2015) Wrinkled retina, bilateral Surgical History (Updated 10/19/22 @ 11:21 by Shubham Kelly DO) Anesthesia History of cholecystectomy (~11/04/21) History of coronary artery stent placement (~01/2022) History of hip replacement History of knee surgery (~2018) Status post cholecystectomy Family History (Updated 09/05/22 @ 20:51 by Ivonne Gomez) Father History of heart disease Hyperlipidemia Mother Hypertension Stroke Sister Hypertension Social History Smoking Status: Former smoker Smoking Status: Former smoker alcohol intake frequency: 0-2 drinks per day Alcohol type: wine Substance Use Type: does not use Exam Initial Vital Signs Initial Vital Signs: Vital Signs Pulse Rate 76 03/02/23 21:48 Pulse Oximetry 94 03/02/23 21:48 HENMT Head: normal to inspection and normocephalic Ears: hearing grossly normal bilaterally and TM's normal bilaterally Face and sinus: normal facial exam Mouth: oral mucosae normal Eyes Visual Rivas: normal visual rivas by confrontation Periorbital: periorbital findings normal Eyelids: eyelids normal Conjunctivae: conjunctivae normal Pupils: PERRL EOM: EOM intact bilaterally Other: Intra-ocular pressure right eye 20, her ocular pressure left eye 17. Bedside ultrasound of the right eye shows no retinal detachment. Skin General: no rashes or lesions noted Neuro General: patient alert, patient awake and moves all extremities Extrem General: capillary refill normal Course Vital Signs Vital signs: Vital Signs - 8 hr 03/02/23 21:52 03/02/23 21:48 03/02/23 21:49 Temperature 98.3 F Pulse Rate 68 76 Respiratory Rate 17 Blood Pressure 187/79 H 189/79 H Pulse Oximetry 93 94 Oxygen Delivery Method Room Air 03/02/23 21:49 03/02/23 22:00 03/02/23 22:00 Temperature Pulse Rate 76 62 Respiratory Rate 29 H Blood Pressure 168/72 H Pulse Oximetry 93 95 Oxygen Delivery Method Medical Decision Making Lab Data Lab results reviewed: Yes I reviewed the patient's lab results. Labs: Point of Care Testing Glucose POC 102 Urine Dip Bedside Urine Glucose Negative Bedside Urine Bilirubin - Negative Bedside Urine Ketone - Negative Urine Specific Otis 1.020 Bedside Urine Occult Blood - Negative Bedside Urine pH 6.0 Bedside Urine Protein - Negative Bedside Urine Urobilinogen - Negative Bedside Urine Nitrite - Negative Bedside Urine Leukocytes - Negative Esterase Point of care testing: Point of Care Testing Glucose POC 102 Urine Dip Bedside Urine Glucose Negative Bedside Urine Bilirubin - Negative Bedside Urine Ketone - Negative Urine Specific Otis 1.020 Bedside Urine Occult Blood - Negative Bedside Urine pH 6.0 Bedside Urine Protein - Negative Bedside Urine Urobilinogen - Negative Bedside Urine Nitrite - Negative Bedside Urine Leukocytes - Negative Esterase MDM Narrative Medical decision making narrative: Patient exam here in the emergency department is very reassuring. The bedside ultrasound shows no signs of retinal detachment. Low suspicion for foreign body, glaucoma, infection, CVA, TIA. I did discuss this with the patient. The plan will be to have her contact her cancer registry coordinator tomorrow to discuss the symptoms that she had this evening and to discuss a follow-up. She was given return precautions. She expressed understanding and agreement. Discharge Plan Departure Patient Disposition: Home Clinical Impression: Changes in vision Instructions: DI for Visual Field Disturbances Activity Restrictions/Additional Instructions: I do recommend that you continue to take all of your medications as directed. I recommend the tomorrow you contact your cancer registry coordinator/information analyst to see if they want to see you before next Wednesday. Return to the emergency department for new symptoms. Prescriptions: No Action zolpidem 5 mg tablet 5 mg PO BEDTIME PRN (Reason: Sleep) Qty: 30 5RF metoprolol succinate 25 mg tablet extended release 24 hr 25 mg PO DAILY Qty: 90 3RF sertraline 50 mg tablet 50 mg PO DAILY Qty: 90 3RF amlodipine [Norvasc] 5 mg tablet 5 mg PO DAILY Qty: 90 3RF pantoprazole [Protonix] [address] for susp in packet 40 mg PO DAILY Qty: 30 0RF famotidine 20 mg Tablet 20 mg PO BID dicyclomine 20 mg Tablet 20 mg PO PRN PRN (Reason: Diarrhea) ezetimibe 10 mg Tablet 10 mg PO QPM Referrals: Shubham Kelly DO [Primary Care Provider] - Stand Alone Forms: Patient Portal/API
== END 2023-03-02 22:28 | disposition home or self-care (01) ==
PROVIDERS: Emergency Provider Emergency Medicine; PCP Family Medicine
DX: H53.8 Other visual disturbances (principal)
CPT/HCPCS: 36415; 81003; 82962; 99283

== ENCOUNTER → 2023-04-12 13:16 | Outpatient (CLI) | payer OTHER, MEDICARE, SELFPAY ==
[2023-04-12 13:59] LABS: Influenza A - CEPHEID Flu A NEGATIVE (NEGATIVE); Influenza B - CEPHEID Flu B NEGATIVE (NEGATIVE); Respiratory Syncytial Virus Negative (Negative)
[2023-04-12 14:00] LABS: COVID-19 CEPHEID 4-PLEX PCR Negative (Negative)
== END ==
PROVIDERS: PCP Family Medicine; Visit Provider Physician Assistant
DX: R05.1 Acute cough (principal)
CPT/HCPCS: 0241U

== ENCOUNTER → 2023-04-23 09:15 | Outpatient (CLI) | payer OTHER, MEDICARE, SELFPAY ==
--- NOTE | 2023-04-23 09:16 | DI.MG.S_ITS ---
BILATERAL DIGITAL SCREENING MAMMOGRAM 3D/2D WITH CAD: 04/23/2023 CLINICAL: Routine screening. Family history of breast cancer. Comparison is made to exams dated: 04/16/2022 mammogram, 01/31/2021 mammogram, and 01/24/2020 mammogram - Outside facility. There are scattered areas of fibroglandular density in both breasts (category b / 25%-50% glandular tissue). Current study was also evaluated with a Computer Aided Detection (CAD) system. There are benign calcifications in both breasts. There also are benign vascular calcifications in both breasts. No significant masses, calcifications, or other findings are seen in either breast. There has been no significant interval change. IMPRESSION: BENIGN There is no mammographic evidence of malignancy. A 1 year screening mammogram is recommended. Based on the Tyrer Cuzick model (a risk assessment model) the patient's lifetime risk is 4.6% and her 10 year risk is 0.0%. According to the ACR, ACS, and NCCN guidelines, an annual breast MRI exam along with mammogram is recommended if the patient's lifetime risk is 20% or greater. This exam was interpreted at Station ID: [id number]. NOTE: For mammograms, a report in lay terms will be sent to the patient. Approximately 15% of breast malignancies will not be visualized mammographically. In the management of a palpable breast mass, a negative mammogram must not discourage biopsy of a clinically suspicious lesion. Electronically Signed By: Rosetta perez/jerardo:04/23/2023 14:37:47 letter sent: Normal Exam ACR BI-RADS Category 2: Benign Finding(s) 3342F
== END ==
PROVIDERS: PCP Family Medicine; Referring Provider Family Medicine; Visit Provider Family Medicine
DX: Z12.31 Encounter for screening mammogram for malignant neoplasm of breast (principal); Z80.3 Family history of malignant neoplasm of breast
CPT/HCPCS: 77063; 77067

== ENCOUNTER → 2023-05-25 08:38 | Outpatient (CLI) | payer OTHER, MEDICARE, SELFPAY ==
[2023-05-25 10:59] LABS: Alanine Aminotransferase 24 IU/L (<35); Albumin 3.9 g/dL (3.5-5.0); Albumin Globulin Ratio 1.4 (1.0-2.8); Alkaline Phosphatase 98 U/L (38-126); Aspartate Aminotransferase 25 IU/L (14-36); BUN Creatinine Ratio 30.4 (6-22); Bilirubin Total 0.6 mg/dL (0.2-1.3); Blood Urea Nitrogen 17 mg/dL (7-17); Calcium 9.2 mg/dL (8.4-10.2); Carbon Dioxide 30 mmol/L (22-32); Chloride 101 mmol/L (98-107); Cholesterol 215 mg/dL (140-199); Estimated Glomerular Filt Rate > 60 mL/min (>60); Globulin 2.8 g/dL (1.7-4.1); Glucose 97 mg/dL (80-110); HDL Cholesterol 50 mg/dL (40-60); HEMOLYSIS < 15 (0-50); LDL Cholesterol Calculated 132 mg/dL (<100); Potassium 4.4 mmol/L (3.4-5.1); Sodium 137 mmol/L (137-145); Total Protein 6.7 g/dL (6.3-8.2); Triglycerides 166 mg/dL (35-150)
== END ==
PROVIDERS: PCP Family Medicine; Referring Provider Family Medicine; Visit Provider Family Medicine
DX: E78.5 Hyperlipidemia, unspecified (principal); I10 Essential (primary) hypertension; Z12.11 Encounter for screening for malignant neoplasm of colon
CPT/HCPCS: 36415; 80053; 80061

== ENCOUNTER → 2023-08-24 13:53 | Outpatient (CLI) | payer MEDICARE, OTHER, SELFPAY | PROVIDERS: PCP Family Medicine; Visit Provider Physician Assistant Surgical | DX: R39.9 Unspecified symptoms and signs involving the genitourinary system (principal) | CPT/HCPCS: 87086 ==

== ENCOUNTER → 2023-09-06 13:33 | Outpatient (CLI) | payer OTHER, MEDICARE, SELFPAY ==
[2023-09-06 15:43] LABS: Appearance Urine UA CLEAR; Bilirubin Urine UA NEGATIVE (NEGATIVE); Color Urine UA YELLOW; Glucose Urine UA NEGATIVE (Negative); Ketones Urine UA NEGATIVE (NEGATIVE); Leukocyte Esterase Urine UA 1+ (NEGATIVE); Nitrite Urine UA NEGATIVE (Negative); Occult Blood Urine UA TRACE-INTACT (Negative); Protein Urine UA NEGATIVE (Negative); Specific Gravity Urine UA <=1.005 (1.000-1.035); Urobilinogen Urine UA 0.2 E.U./dL (0.2)
[2023-09-06 15:46] LABS: pH Urine UA 6.5 (4.5-8.0)
[2023-09-06 15:52] LABS: Bacteria Urine Few (2-10); Culture Indicated Urine Specimen Cultured; RBC Urine 0-1/HPF (0-5/HPF); Squamous Epithelial Cell Urine 1-5 /HPF (0-5/HPF); Urine Volume 10mL (spun); WBC Urine 5-10/HPF (0-5/HPF)
== END ==
PROVIDERS: PCP Family Medicine; Referring Provider Family Medicine; Visit Provider Family Medicine
DX: N39.0 Urinary tract infection, site not specified (principal); R30.0 Dysuria
CPT/HCPCS: 81001; 87086

== ENCOUNTER 2023-09-21 11:59 | Day surgery (SDC) | payer OTHER, SELFPAY ==
[2023-09-21] MEDS: LACTATED RINGERS 1,000 ML 42 ML IV (12:19)
[2023-09-21 12:35] VITALS: BP 128/71; PULSE 63; RESP 16; TEMP 36.6; O2SAT 95
--- NOTE | 2023-09-21 12:49 | PM.HP.1 ---
History of Present Illness History of Present Illness Date Patient Seen: 09/21/23 Time Patient Seen: 12:49 Chief complaint: Screening Colonoscopy Narrative: 77-year-old woman here for screening colonoscopy. Last colonoscopy 5-6 years ago. She has a personal history of colonic polyps. No family history of intestinal malignancy. [facility] Medical History Eczema (~2018) Polymyalgia rheumatica (~2016) Restless leg syndrome (~2009) Mumps (~1952) Measles (~1950) Chicken pox (~1954) Wrinkled retina, bilateral Herpes (~1973) History of IBS Colon polyps Skin cancer (~2015) Insomnia Depression (~2017) KANA (obstructive sleep apnea) (~2008) Benign essential HTN Hyperlipidemia GERD (gastroesophageal reflux disease) Surgical History Status post cholecystectomy Anesthesia History of knee surgery (~2018) History of hip replacement History of cholecystectomy (~11/04/21) Family History Father History of heart disease Hyperlipidemia Mother Hypertension Stroke Sister Hypertension Social History Smoking Status: Former smoker Meds Home Medications and Allergies Home Medications Medication Instructions Recorded Confirmed Type amlodipine 5 mg tablet (Norvasc) 5 mg PO DAILY blood pressure #90 05/24/23 09/21/23 Rx tabs estradiol 10 mcg vaginal tablet 10 mcg vaginal 2XW #30 tabs 05/24/23 09/21/23 Rx (Vagifem) ezetimibe 10 mg tablet 10 mg PO QPM #90 tabs 05/24/23 09/21/23 Rx metoprolol succinate 25 mg 25 mg PO DAILY #90 tabs 05/24/23 09/21/23 Rx tablet,extended release 24 hr pantoprazole 40 mg tablet,delayed 40 mg PO DAILY #90 tabs 05/24/23 09/21/23 Rx release sertraline 50 mg tablet 50 mg PO DAILY #90 tabs 05/24/23 09/21/23 Rx zolpidem 5 mg tablet 5 mg PO BEDTIME PRN Sleep #30 tabs 05/24/23 09/21/23 Rx estradiol 0.01% (0.1 mg/gram) 0.25 appful vaginal BEDTIME #42.5 09/07/23 09/21/23 Rx vaginal cream grams Allergies Allergy/AdvReac Type Severity Reaction Status Date / Time gold Au 198 Allergy Verified 09/21/23 12:23 Iodinated Contrast Media Allergy Verified 09/21/23 12:23 shellfish derived Allergy Verified 09/21/23 12:23 Xqhdihb-RNC-WxS Reductase Allergy Verified 09/21/23 12:23 Inhibitor Sulfa (Sulfonamide Allergy Verified 09/21/23 12:23 Antibiotics) Exam Vital Signs (past 8 hours): - 09/21/23 12:35 Temperature 97.9 F Pulse Rate 63 Respiratory Rate 16 Blood Pressure 128/71 Pulse Oximetry 95 Oxygen Delivery Method Room Air Oxygen Delivery Method Room Air Narrative Exam Narrative: General adult woman alert oriented no acute distress Chest nonlabored respiration Extremities warm well perfused Assessment & Plan Assessment & Plan narrative: The patient requires colorectal screening and colonoscopy is recommended. Technical details were discussed. Risks, benefits, alternatives explained. Risks including but not limited to myocardial infarction, aspiration, bleeding, pain, missed lesion, incomplete examination, need for further radiographic studies, colonic perforation, and need for major abdominal surgery were discussed. All questions were answered to their satisfaction, and they are in agreement with this plan.
--- NOTE | 2023-09-21 12:51 | P.OP.COLON_ITS ---
Operative Date/Time/Diagnoses Date of procedure: 09/21/23 Time of procedure: 12:51 Pre-op diagnosis: Colorectal screening Procedure & Clinicians Study performed: Colonoscopy Same procedure as scheduled: Yes Indications: Colorectal screening Personal history of colonic polyps Surgeon: Pramod Dominguez Procedure Notes Procedure in detail: The history and physical was performed/updated and the patient is ASA class is 2. The procedure was discussed in detail with the patient. Potential risks complications including infection, bleeding, missed diagnosis, perforation, need for surgery, and were explained. Their questions were answered and informed consent was obtained. Patient was brought to the procedure room and placed standard monitoring equipment. The patient's vital signs were monitored continuously throughout the entire procedure. Prior to starting time-out was performed. The patient was placed in the left lateral recumbent position. Procedural sedation was administered by anesthesia. Examination began with a thorough inspection of the perianal area there was no evidence of fissures, fistulae, external hemorrhoids or cutaneous malignancy. The colonoscopy scope was then placed into the anal canal and was advanced to the cecum, which was identified by the ileocecal valve, the appendiceal orifice and the confluence of the taenia. The scope was then slowly withdrawn examining colon thoroughly in all directions, irrigating it of any residual stool. The scope was retroflexed within the rectum The patient tolerated the procedure well. They will be discharged once criteria are met. The prep was of good/excellent quality. The withdrawl time was 7 minutes. FINDINGS * Unremarkable colonoscopy. No masses polyps or inflammation. * Sigmoid mild diverticulosis Impression: Normal colonoscopy Post-procedure Recommendations: High fiber diet Plan for aftercare: No further colonoscopy necessary unless symptomatic Disposition: same day surgery
[2023-09-21 13:12] VITALS: BP 118/51; PULSE 66; RESP 14; TEMP 36.7; O2SAT 94
[2023-09-21 13:22] VITALS: BP 122/57; PULSE 66; RESP 14; O2SAT 95
[2023-09-21 13:27] VITALS: BP 123/55; PULSE 67; RESP 12; O2SAT 95
[2023-09-21 13:33] VITALS: BP 137/68; PULSE 59; RESP 19; O2SAT 96
== END 2023-09-21 13:57 | disposition home or self-care (01) ==
PROVIDERS: PCP Family Medicine; Referring Provider Surgery; Visit Provider Surgery
PROC: 0DJD8ZZ Inspection of Lower Intestinal Tract, Via Natural or Artificial Opening Endoscopic (ICD-10-PCS; CPT 45378; principal; 2023-09-21 12:45)
DX: Z12.11 Encounter for screening for malignant neoplasm of colon (principal); Z86.010 Personal history of colon polyps; K57.30 Diverticulosis of large intestine without perforation or abscess without bleeding
CPT/HCPCS: 45378; J2704

== ENCOUNTER → 2023-11-24 12:33 | Outpatient (CLI) | payer OTHER, MEDICARE, SELFPAY ==
[2023-11-24 13:59] LABS: Add Manual Diff / Slide Review NO; Basophils Absolute Auto 0 /uL (0-100); Basophils Percent Auto 0.8 % (0-2); Eosinophils Absolute Auto 100 /uL (0-450); Eosinophils Percent Auto 2.1 % (2-4); Hematocrit 39.4 % (36-46); Hemoglobin 13.5 g/dL (12.0-16.0); Lymphocytes Absolute Auto 1500 /uL (1100-4500); Lymphocytes Percent Auto 23.9 % (25-40); Mean Corpuscular HGB Conc 34.2 % (30-36); Mean Corpuscular Hemoglobin 32.9 PG (26-34); Monocytes Absolute Auto 600 /uL (0-900); Monocytes Percent Auto 10.6 % (3-14); Neutrophils Absolute Auto 3800 /uL (1500-7000); Neutrophils Percent Auto 62.6 % (50-75); Platelet Count 231 X10^3/uL (150-400); Red Cell Distribution Width 12.7 % (11.6-14.8); White Blood Cell Count 6.1 X10^3/uL (4.5-11.0)
[2023-11-24 14:16] LABS: Alanine Aminotransferase 22 IU/L (<35); Albumin Globulin Ratio 1.4 (1.0-2.8); Alkaline Phosphatase 101 U/L (38-126); Aspartate Aminotransferase 30 IU/L (14-36); BUN Creatinine Ratio 37.3 (6-22); Bilirubin Total 0.6 mg/dL (0.2-1.3); Blood Urea Nitrogen 19 mg/dL (7-17); Carbon Dioxide 30 mmol/L (22-32); Chloride 104 mmol/L (98-107); Estimated Glomerular Filt Rate > 60 mL/min (>60); Globulin 2.9 g/dL (1.7-4.1); Glucose 100 mg/dL (80-110); HEMOLYSIS 17 (0-50); Lipase 38 U/L (23-300); Potassium 3.8 mmol/L (3.4-5.1); Sodium 138 mmol/L (137-145); Total Protein 6.9 g/dL (6.3-8.2)
== END ==
LOC: LAB 12:35
PROVIDERS: PCP Family Medicine; Referring Provider Family Medicine; Visit Provider Family Medicine
DX: R11.0 Nausea (principal); Z90.49 Acquired absence of other specified parts of digestive tract
CPT/HCPCS: 36415; 80053; 83690; 85025

== ENCOUNTER 2024-04-12 12:42 | Day surgery (SDC) | payer OTHER, SELFPAY ==
--- NOTE | 2024-04-12 | PATH_ITS ---
[facility] Accession Number: [id number] No. of containers..03 Tissue . 01 Material submitted: . PART A: duodenum - DUODENUM PART B: stomach - STOMACH PART C: gastrointestinal site - GASTRIC POLYPS . 01 Diagnosis: Part A: DUODENUM: Duodenal mucosa with no diagnostic alterations. No active inflammation and no evidence of celiac disease. . Part B: STOMACH: Gastric mucosa with mild chronic inflammation. No Helicobacter organisms identified. No intestinal metaplasia, dysplasia, or malignancy identified. . Part C: GASTRIC POLYPS: Fundic gland polyps. No Helicobacter organisms identified on H/E stain. No intestinal metaplasia, dysplasia, or malignancy identified. [facility] 04/17/20241745 Local . 01 Electronically signed: . Donn Zambrano MD, Pathologist NPI- [id number] . 01 Gross description: . Part A: DUODENUM: Received in formalin is 1 fragment(s) of chacon, soft tissue measuring 0.3 x 0.3 x 0.2 cm submitted entirely in 1 cassette(s) . Part B: STOMACH: Received in formalin are 2 fragment(s) of chacon, soft tissue measuring 0.2 x 0.2 x 0.2 cm to 0.4 x 0.3 x 0.2 cm submitted entirely in 1 cassette(s) . Part C: GASTRIC POLYPS: Received in formalin are 2 fragment(s) of chacon, soft tissue measuring 0.1 x 0.1 x 0.1 cm to 0.3 x 0.2 x 0.2 cm submitted entirely in 1 cassette(s) /[facility] 04/17/20241745 Local . 01 Microscopic: . Part B: STOMACH: An immunohistochemical stain was performed to evaluate for Helicobacter organisms and is negative. The control stains appropriately. * This test was developed and its performance characteristics determined by [employer]. It has not been cleared or approved by the U.S. Food and Drug Administration. The FDA has determined that such clearance or approval is not necessary. This test is used for clinical purposes. It should not be regarded as investigational or for research. . 01 Pathologist provided ICD-10: K29.50, K31.7 . 01 CPT . 734227, 256863, 726970, R97234 Specimen Comment: A courtesy copy of this report has been sent to [phone] Performed at: [address] [id number] MD Donn Zambrano MD Phone: [phone]
[2024-04-12] MEDS: LACTATED RINGERS 1,000 ML 42 ML IV (13:38)
[2024-04-12 13:43] VITALS: BP 127/53; PULSE 68; RESP 12; TEMP 36.2; O2SAT 96
--- NOTE | 2024-04-12 14:00 | PM.PREOP ---
Pre-operative Note Interval Note History & Physical reviewed/Exam performed by Physician: Yes Changes to H&P: No ASA Class (for procedural sedation): II
--- NOTE | 2024-04-12 14:00 | PM.OP.EGD ---
Operative Date/Time/Diagnoses Date of procedure: 04/12/24 Procedure & Clinicians Study performed: EGD Indications: Nausea Surgeon: Lukasz Hopkins Procedure Notes Procedure in detail: After informed consent was obtained the patient was placed in left lateral decubitus position. The video upper scope was placed into the oropharynx and with the patient's help swallowed into the esophagus. The esophagus stomach and duodenum were carefully examined. On withdrawal, retroflexed view the GE junction was performed. The scope was removed. The patient tolerated procedure well. Blood loss none Complications none Sedation mac Findings 1. Normal esophagus 2. Fundic gland polyps in the upper stomach biopsies taken 3. Scattered moderate patchy inflammation in the antrum biopsies taken to rule out Helicobacter 4. Patchy erythema in the duodenal bulb biopsies taken to rule out celiac Will be in touch regarding biopsies and follow up with [facility]
[2024-04-12 14:38] VITALS: BP 139/59; PULSE 83; RESP 16; TEMP 36.4; O2SAT 95
[2024-04-12 14:43] VITALS: BP 140/60; PULSE 76; RESP 12; TEMP 36.3; O2SAT 95
[2024-04-12 14:49] VITALS: BP 150/74; PULSE 75; RESP 15; TEMP 36.3; O2SAT 95
== END 2024-04-12 15:15 | disposition home or self-care (01) ==
PROVIDERS: PCP Family Medicine; Referring Provider Internal Medicine Gastroenterology; Visit Provider Internal Medicine Gastroenterology
PROC: 0DJ08ZZ Inspection of Upper Intestinal Tract, Via Natural or Artificial Opening Endoscopic (ICD-10-PCS; CPT 43235; principal; 2024-04-12 14:00)
DX: K29.50 Unspecified chronic gastritis without bleeding (principal); K31.7 Polyp of stomach and duodenum
CPT/HCPCS: 43239; J0330; J2405; J2704

== ENCOUNTER → 2024-04-28 12:58 | Outpatient (CLI) | payer OTHER, SELFPAY ==
--- NOTE | 2024-04-28 12:59 | DI.MG.S_ITS ---
BILATERAL DIGITAL SCREENING MAMMOGRAM 3D/2D WITH CAD: 04/28/2024 CLINICAL: Routine screening. Family history of breast cancer. Comparison is made to exams dated: 04/23/2023 mammogram - [facility], 04/16/2022 mammogram, and 01/31/2021 mammogram - Outside facility. There are scattered areas of fibroglandular density (category b / 25%-50% glandular tissue). Current study was also evaluated with a Computer Aided Detection (CAD) system. There are benign post operative findings in both breasts. No significant masses, calcifications, or other findings are seen in either breast. There has been no significant interval change. IMPRESSION: BENIGN There is no mammographic evidence of malignancy. A 1 year screening mammogram is recommended. Based on the Tyrer Cuzick model (a risk assessment model) the patient's lifetime risk is 4.1% and her 10 year risk is 0.0%. According to the ACR, ACS, and NCCN guidelines, an annual breast MRI exam along with mammogram is recommended if the patient's lifetime risk is 20% or greater. This exam was interpreted at Station ID: [id number]. NOTE: For mammograms, a report in lay terms will be sent to the patient. Approximately 15% of breast malignancies will not be visualized mammographically. In the management of a palpable breast mass, a negative mammogram must not discourage biopsy of a clinically suspicious lesion. Electronically Signed By: Christine Sanabria M.D., Ph.D. alfonso/jerardo:04/28/2024 23:36:55 letter sent: Normal Exam ACR BI-RADS Category 2: Benign
== END ==
PROVIDERS: PCP Family Medicine; Referring Provider Family Medicine; Visit Provider Family Medicine
DX: Z12.31 Encounter for screening mammogram for malignant neoplasm of breast (principal); Z80.3 Family history of malignant neoplasm of breast
CPT/HCPCS: 77063; 77067

== ENCOUNTER → 2024-06-19 17:26 | Outpatient (CLI) | payer OTHER, SELFPAY ==
[2024-06-19 18:41] LABS: BUN Creatinine Ratio 33.3 (6-22); Blood Urea Nitrogen 20 mg/dL (7-17); Calcium 9.3 mg/dL (8.4-10.2); Carbon Dioxide 31 mmol/L (22-32); Chloride 100 mmol/L (98-107); Cholesterol 199 mg/dL (140-199); Estimated Glomerular Filt Rate > 60 mL/min (>60); Glucose 90 mg/dL (80-110); HDL Cholesterol 45 mg/dL (40-60); HEMOLYSIS < 15 (0-50); LDL Cholesterol Calculated 122 mg/dL (<100); Potassium 3.6 mmol/L (3.4-5.1); Sodium 138 mmol/L (137-145); Triglycerides 161 mg/dL (35-150)
[2024-06-19 19:33] LABS: Hep C Virus Ab w/Reflex Quant NEGATIVE s/c (NEGATIVE)
== END ==
LOC: LAB 17:27
PROVIDERS: PCP Family Medicine; Referring Provider Family Medicine; Visit Provider Family Medicine
DX: Z00.00 Encounter for general adult medical examination without abnormal findings (principal); I10 Essential (primary) hypertension; I47.10 Supraventricular tachycardia, unspecified
CPT/HCPCS: 36415; 80048; 80061; 86803

== ENCOUNTER → 2025-01-01 11:25 | Outpatient (CLI) | payer OTHER, SELFPAY ==
[2025-01-01 12:38] LABS: Add Manual Diff / Slide Review NO; Basophils Absolute Auto 0 /uL (0-100); Basophils Percent Auto 0.8 % (0-2); Eosinophils Absolute Auto 100 /uL (0-450); Hematocrit 38.9 % (36-46); Hemoglobin 13.8 g/dL (12.0-16.0); Lymphocytes Absolute Auto 1400 /uL (1100-4500); Mean Corpuscular HGB Conc 35.4 % (30-36); Mean Corpuscular Hemoglobin 33.8 PG (26-34); Mean Corpuscular Volume 95.6 fL (80-100); Monocytes Absolute Auto 500 /uL (0-900); Neutrophils Absolute Auto 3400 /uL (1500-7000); Neutrophils Percent Auto 63.2 % (50-75); Platelet Count 225 X10^3/uL (150-400); Red Blood Cell Count 4.07 X10^6/uL (4.0-5.2); Red Cell Distribution Width 12.7 % (11.6-14.8); White Blood Cell Count 5.4 X10^3/uL (4.5-11.0)
[2025-01-01 13:00] LABS: Alanine Aminotransferase 22 IU/L (<35); Albumin 4.1 g/dL (3.5-5.0); Albumin Globulin Ratio 1.4 (1.0-2.8); Alkaline Phosphatase 89 U/L (38-126); Aspartate Aminotransferase 38 IU/L (14-36); BUN Creatinine Ratio 40.8 (6-22); Bilirubin Total 0.5 mg/dL (0.2-1.3); Blood Urea Nitrogen 20 mg/dL (7-17); Calcium 8.9 mg/dL (8.4-10.2); Carbon Dioxide 30 mmol/L (22-32); Chloride 102 mmol/L (98-107); Estimated Glomerular Filt Rate > 60 mL/min (>60); Globulin 2.9 g/dL (1.7-4.1); Glucose 95 mg/dL (70-99); HEMOLYSIS < 15 (0-50); Sodium 137 mmol/L (137-145)
[2025-01-01 13:17] LABS: Lipase 39 U/L (23-300); Potassium 3.7 mmol/L (3.4-5.1)
== END ==
PROVIDERS: PCP Family Medicine; Referring Provider Family Medicine; Visit Provider Family Medicine
DX: R10.9 Unspecified abdominal pain (principal); R14.0 Abdominal distension (gaseous)
CPT/HCPCS: 36415; 80053; 83690; 85025

== ENCOUNTER → 2025-01-31 15:56 | Outpatient (CLI) | payer OTHER, SELFPAY ==
[2025-01-31 18:28] LABS: Appearance Urine UA CLEAR; Bilirubin Urine UA NEGATIVE (NEGATIVE); Color Urine UA YELLOW; Glucose Urine UA NEGATIVE (Negative); Ketones Urine UA NEGATIVE (NEGATIVE); Leukocyte Esterase Urine UA NEGATIVE (NEGATIVE); Nitrite Urine UA NEGATIVE (Negative); Occult Blood Urine UA NEGATIVE (Negative); Protein Urine UA NEGATIVE (Negative); Specific Gravity Urine UA 1.020 (1.000-1.035); Urobilinogen Urine UA 0.2 E.U./dL (0.2)
[2025-01-31 18:29] LABS: pH Urine UA 6.5 (4.5-8.0)
[2025-01-31 18:34] LABS: Culture Indicated Urine Cult Not Indicated
== END ==
PROVIDERS: PCP Family Medicine; Visit Provider Obstetrics & Gynecology Gynecology
DX: N81.11 Cystocele, midline (principal)
CPT/HCPCS: 81001

== ENCOUNTER → 2025-05-15 08:21 | Outpatient (CLI) | payer OTHER, SELFPAY ==
[2025-05-15 09:05] LABS: Hematocrit 38.4 % (36-46); Hemoglobin 13.3 g/dL (12.0-16.0); Mean Corpuscular HGB Conc 34.6 % (30-36); Mean Corpuscular Hemoglobin 33.0 PG (26-34); Mean Corpuscular Volume 95.5 fL (80-100); Platelet Count 219 X10^3/uL (150-400)
[2025-05-15 09:45] LABS: Alanine Aminotransferase 17 IU/L (<35); Albumin 3.8 g/dL (3.5-5.0); Albumin Globulin Ratio 1.4 (1.0-2.8); Alkaline Phosphatase 93 U/L (38-126); Blood Urea Nitrogen 20 mg/dL (7-17); Calcium 8.7 mg/dL (8.4-10.2); Carbon Dioxide 28 mmol/L (22-32); Chloride 101 mmol/L (98-107); Cholesterol 190 mg/dL (140-199); Estimated Glomerular Filt Rate > 60 mL/min (>60); Globulin 2.7 g/dL (1.7-4.1); Glucose 99 mg/dL (70-99); HDL Cholesterol 56 mg/dL (40-60); HEMOLYSIS < 15 (0-50); Potassium 4.1 mmol/L (3.4-5.1); Sodium 135 mmol/L (137-145); Total Protein 6.5 g/dL (6.3-8.2); Triglycerides 140 mg/dL (35-150)
== END ==
PROVIDERS: PCP Family Medicine; Referring Provider Family Medicine; Visit Provider Family Medicine
DX: Z00.00 Encounter for general adult medical examination without abnormal findings (principal); E66.09 Other obesity due to excess calories; Z68.32 Body mass index [BMI] 32.0-32.9, adult; M18.0 Bilateral primary osteoarthritis of first carpometacarpal joints; M35.3 Polymyalgia rheumatica; G47.33 Obstructive sleep apnea (adult) (pediatric); I10 Essential (primary) hypertension; E78.49 Other hyperlipidemia; G25.81 Restless legs syndrome
CPT/HCPCS: 36415; 80053; 80061; 85027; 85651; 86140

== ENCOUNTER → 2025-05-24 12:08 | Outpatient (CLI) | payer OTHER, SELFPAY | PROVIDERS: PCP Family Medicine; Referring Provider Family Medicine; Visit Provider Family Medicine | DX: M25.511 Pain in right shoulder (principal); M25.512 Pain in left shoulder; M25.561 Pain in right knee; M25.562 Pain in left knee | CPT/HCPCS: 36415; 85651; 86140 ==

== ENCOUNTER → 2025-06-13 11:32 | Outpatient (CLI) | payer OTHER, SELFPAY ==
--- NOTE | 2025-06-13 11:33 | DI.MG.S_ITS ---
MM screening mammo BI: 06/13/2025. BI-RADS: 2 CLINICAL: 79-year old female for bilateral screening mammogram. Tyrer-Cuzick lifetime risk of 4.6%. No personal or first-degree family history of breast cancer. Current reported family history of breast cancer: maternal aunt. The patient had prior bilateral breast biopsies. PRIOR EXAMS 04/28/2024, 04/23/2023. MAMMOGRAPHY TECHNIQUE: 2D and 3D (tomosynthesis) digital mammographic views obtained, with additional images as needed for full coverage. Current study was also evaluated with a Computer Aided Detection (CAD) system. DENSITY B. There are scattered areas of fibroglandular density. MAMMOGRAPHY FINDINGS Bilateral: Benign-appearing calcifications noted. There are no suspicious masses, calcifications, or other findings in the breast. IMPRESSION: * No evidence of malignancy with benign findings. RECOMMENDATIONS Bilateral * Annual screening mammography. OVERALL ASSESSMENT CATEGORY BI-RADS-2: Benign. [employer] recommends annual screening mammography beginning at age 40 for women with average risk of breast cancer. ELECTRONICALLY SIGNED: Brandon Dudley M.D. on 06/15/2025 at 11:31:29 PM PT Interpreting Station ID: [id number]
== END ==
LOC: MAMMO 11:33
PROVIDERS: PCP Family Medicine; Referring Provider Family Medicine; Visit Provider Family Medicine
DX: Z12.31 Encounter for screening mammogram for malignant neoplasm of breast (principal); Z80.3 Family history of malignant neoplasm of breast
CPT/HCPCS: 77063; 77067